=== PATIENT | female | born 1970 | race Caucasian/White ===

== ENCOUNTER 2019-09-03 10:15 | Outpatient (CLI) | payer SELFPAY ==
--- NOTE | 2019-09-03 10:27 | XR_ITS ---
WS: [id number] XR hip LT 2-3V wo/w pel* [id number] REASON FOR EXAM: PAIN IN LEFT HIP FINDINGS: There is early degenerate changes in the left hip joint. The ilium, ischium, and pubis bilaterally are normal. There is no fractures of either hip joints seen. 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
== END 2019-09-03 10:16 | disposition home or self-care (01) ==
PROVIDERS: Visit Provider Nurse Practitioner
DX: M16.12 Unilateral primary osteoarthritis, left hip (principal); M25.552 Pain in left hip
CPT/HCPCS: 73502

== ENCOUNTER → 2023-11-13 12:31 | Outpatient (BNVA) | payer SELFPAY | PROVIDERS: PCP Family Medicine; Visit Provider Family Medicine | DX: E55.9 Vitamin D deficiency, unspecified (principal); K64.4 Residual hemorrhoidal skin tags; R79.89 Other specified abnormal findings of blood chemistry; M17.0 Bilateral primary osteoarthritis of knee | CPT/HCPCS: 80053; 80061; 82306; 82607; 83036; 84439; 84443; 85025 ==